=== PATIENT | male | born 1980 | race Two or more races ===

== ENCOUNTER → 2018-05-04 | Emergency (ER) | payer OTHER ==
[~2018-05-04] VITALS: Ht 170.2 cm; Wt 90.7 kg
[~2018-05-04] MED LIST: FENOFIBRATE50 MG; JARDIANCE10 MG; LIPITOR20 MG; METFORMIN HCL500 MG
== END | disposition left against medical advice (07) ==
LOC: ER 23:20
DX: Z53.20 Procedure and treatment not carried out because of patient's decision for unspecified reasons (principal)